=== PATIENT | male | born 1980 | race Caucasian/White ===

== ENCOUNTER 2022-09-02 07:29 | Emergency (ER) | payer OTHER ==
[2022-09-02 07:45] VITALS: TEMP 97.6; BMI 25.1
[2022-09-02] MEDS ORDERED: LIDOCAINE 5% TOPICAL PATCH TP ONE (09:02)
[2022-09-02] MEDS ORDERED: diazePAM 5 MG TABLET PO ONE (09:05)
[2022-09-02] MEDS ORDERED: ACETAMINOPHEN 1000 MG/100 ML BAG IVPB ONE (09:06)
[2022-09-02] MEDS ORDERED: LIDOCAINE 5% TOPICAL PATCH ONE (09:30)
[2022-09-02] MEDS ORDERED: diazePAM 5 MG TABLET ONE (09:30)
[2022-09-02] MEDS ORDERED: ACETAMINOPHEN INJECTION 100 ML IVPB ONE (09:30)
[2022-09-02 09:57] LABS: HEMATOCRIT 46.1 % (35.4-49); HEMOGLOBIN 15.1 GM/dL (11.7-16.9); MCH 30.5 pg (25.7-33.7); MCHC 32.8 g/dl (32.0-35.9); MEAN PLT VOLUME 8.1 fl (7.5-11.1); PLATELET COUNT 279 10^3/uL (134-434); RBC 4.96 M/mm3 (4.00-5.60); RDW 12.7 % (11.9-15.9); WHITE BLOOD COUNT 22.5 K/mm3 (4.0-10.0)
[2022-09-02 10:25] LABS: ALBUMIN 4.5 g/dl (3.4-5.0); BLOOD UREA NITROGEN 15.7 mg/dL (7-18); CALCIUM 9.8 mg/dL (8.5-10.1)
[2022-09-02 10:28] LABS: CREATININE 0.9 mg/dL (0.55-1.3)
[2022-09-02 10:30] LABS: BILIRUBIN,TOTAL 0.6 mg/dL (0.2-1)
[2022-09-02] MEDS ORDERED: SODIUM CHLORIDE 0.9% 1000 ML INFUS.BAG IV ONE (10:30)
[2022-09-02 10:47] LABS: TOT PROT 7.7 g/dl (6.4-8.2)
[2022-09-02] MEDS ORDERED: ONDANSETRON 4 MG/2 ML VIAL IVPUSH ONE (11:16)
[2022-09-02] MEDS ORDERED: ONDANSETRON 4 MG/2 ML VIAL ONE (11:34)
[2022-09-02] MEDS ORDERED: morphine SULFATE 4 MG/ML VIAL ONE (11:34)
[2022-09-02] MEDS ORDERED: KETOROLAC TROMETHAMINE 30 MG/1 ML VIAL IVPUSH ONE (11:36)
[2022-09-02] MEDS: morphine CARPU-JECT 4 MG/1 ML DISP.SYRIN IVPUSH ONE ×2 (11:52→12:23)
[2022-09-02] MEDS ORDERED: morphine CARPU-JECT 4 MG/1 ML DISP.SYRIN IVPUSH ONE (11:54)
[2022-09-02] MEDS ORDERED: KETOROLAC TROMETHAMINE 30 MG/1 ML VIAL ONE (12:17)
[2022-09-02 13:08] VITALS: BP 129/70; PULSE 72; RESP 20
[2022-09-02 13:35] LABS: URINE APPEARANCE CLEAR; URINE BILIRUBIN NEGATIVE (NEGATIVE); URINE COLOR YELLOW; URINE GLUCOSE (UA) NEGATIVE (NEGATIVE); URINE KETONE 2+ (NEGATIVE); URINE LEUK ESTERASE NEGATIVE (NEGATIVE); URINE NITRITE NEGATIVE (NEGATIVE); URINE PROTEIN NEGATIVE (NEGATIVE); URINE UROBILINOGEN 0.2 mg/dL (0.2-1.0)
[2022-09-02] MEDS ORDERED: LIDOCAINE PATCH REMOVAL MC ONE (22:00)
== END 2022-09-02 14:37 | disposition home or self-care (01) ==
LOC: JER 07:29
PROC: 3E033GC Introduction of Other Therapeutic Substance into Peripheral Vein, Percutaneous Approach (ICD-10-PCS; principal; 2022-09-02)
DX: S22.089A Unspecified fracture of T11-T12 vertebra, initial encounter for closed fracture (principal); W19.XXXA Unspecified fall, initial encounter
CPT/HCPCS: 36415; 70450-TC; 72070-TC-FY; 72100-TC-FY; 72128-TC; 72131-TC; 80053; 81003; 85027; 87086; 93005; 93010; 99285-25

== ENCOUNTER 2025-04-12 23:23 | Emergency (ER) | payer OTHER ==
[2025-04-12 23:28] VITALS: BP 117/76; PULSE 74; RESP 18; TEMP 97.8; BMI 25.8
[2025-04-12] MEDS ORDERED: MAG HYDROX/AL HYDROX/SIMETH 30 ML UNIT-DOSE CUP ONE (23:44)
[2025-04-12] MEDS ORDERED: LIDOCAINE VISCOUS 2% ORAL/TOP 15 ML UNIT-DOSE CUP ONE (23:44)
[2025-04-12] MEDS: MAG HYDROX/AL HYDROX/SIMETH 30 ML UNIT-DOSE CUP PO ONE (23:49)
[2025-04-12] MEDS: LIDOCAINE VISCOUS 2% ORAL/TOP 15 ML UNIT-DOSE CUP MM ONE (23:49)
== END 2025-04-13 00:28 | disposition home or self-care (01) ==
LOC: JER 23:23
DX: R09.89 Other specified symptoms and signs involving the circulatory and respiratory systems (principal)
CPT/HCPCS: 99283-25